=== PATIENT | female | born 1970 | race Caucasian/White ===

== ENCOUNTER 2017-08-29 11:58 | Emergency (ER) | payer OTHER ==
[~2017-08-29] VITALS: Ht 165.1 cm; Wt 77.3 kg
[~2017-08-29 11:58] MED LIST: CARAFATE100 MG/ML PO; PANTOPRAZOLE SO40 MG PO; SYNTHROID PO; WELLBUTRIN SR200 MG PO
[2017-08-29 12:30] LABS: HEMATOCRIT 38.4 % (36.0-46.0); MCH 33.1 PG (29.0-34.0); MCHC 34.1 G/DL (30.0-36.0); MEAN PLAT.VOLUME 9.6 uM^3 (9.5-12.4); PLATELET COUNT 220 K/uL (156-360); RBC DIS.WIDTH-CV 11.5 % (11.8-14.6); RBC DIS.WIDTH-SD 40.8 % (39-53); RED BLOOD COUNT 3.96 M/uL (3.80-5.20); WHITE BLOOD COUNT 6.5 K/uL (4.1-10.2)
[2017-08-29 12:38] LABS: CHLORIDE 109 mEq/L (99-109); POTASSIUM 4.1 mEq/L (3.7-5.4); SODIUM 141 mEq/L (136-147)
[2017-08-29 12:40] LABS: GLUCOSE 77 mg/dL (70-99)
[2017-08-29 12:41] LABS: ANION GAP 7 MEQ/L (2-14)
[2017-08-29 12:44] LABS: GFR ESTIMATE (CALCULATED) > 59 mL/min/
[2017-08-29 12:45] LABS: UREA NITROGEN (BUN) 10 mg/dL (9-23)
[2017-08-29 12:49] LABS: TROP-I INTERPRETATION NEGATIVE; TROPONIN-I < 0.01 ng/mL (0.0-0.30)
[2017-08-29 13:14] LABS: AMYLASE 68 IU/L (1-118)
[2017-08-29 13:20] LABS: SERUM ETHYL ALCOHOL 203 mg/dL
[2017-08-29 13:23] LABS: LIPASE 22 U/L (1.0-51.0)
[2017-08-29] MEDS ORDERED: PEPCID20 MG PO (14:32)
[2017-08-29 16:10] VITALS: BP 110/81
[2017-08-29 16:36] LABS: TOTAL BILIRUBIN 0.4 mg/dL (0.0-1.0)
[2017-08-29 16:37] LABS: ALKALINE PHOSPHATASE 61 IU/L (3-129)
[2017-08-29 16:40] LABS: DIRECT BILIRUBIN 0.2 mg/dL (0.0-0.3)
== END 2017-08-29 16:14 | disposition left against medical advice (07) ==
LOC: EME 11:58
DX: R10.13 Epigastric pain (principal); K21.9 Gastro-esophageal reflux disease without esophagitis; Z87.891 Personal history of nicotine dependence
CPT/HCPCS: 71020; 74177; 80048; 80076; 82150; 83690; 84484; 85027; 93005; 99281; 99284; G0480; J1885